=== PATIENT | male | born 1970 | race African-American/Black ===

== ENCOUNTER 2021-11-28 13:49 | Outpatient (CLI) | payer BC, SELFPAY ==
[2021-11-28 21:27] LABS: Basophils Percent Auto 0.7 % (0.0-3.0); Eosinophils Percent Auto 1.7 % (0.0-7.0); Hematocrit 40.4 % (37.0-53.0); Hemoglobin* 12.8 gm/dL (13.5-17.5); Immature Granulocytes Abs Auto 0.03 K/uL (0.00-0.30); Lymphocytes Percent Auto 29.4 % (20-44); Mean Corpuscular HGB Conc 32 gm/dL (32-36); Mean Corpuscular Hemoglobin 28 pg (26-34); Mean Corpuscular Volume 88 fL (80-100); Monocytes Percent Auto 12.7 % (0.0-11.0); Neutrophils Percent Auto 54.8 % (42.0-72.0); Platelet Count* 290 K/uL (140-440); Red Blood Count 4.61 m/uL (4.30-5.90); White Blood Count* 4.18 K/uL (4.50-11.00)
[2021-11-28 21:33] LABS: Slide Review Reflex No
[2021-11-28 21:58] LABS: Albumin* 4.1 g/dL (3.3-5.0); Chloride* 97 mmol/L (96-114)
[2021-11-28 21:59] LABS: Potassium* 4.3 mmol/L (3.6-5.1); Sodium* 134 mmol/L (135-149)
[2021-11-28 22:01] LABS: Alanine Aminotransferase* 35 U/L (4-50); Alkaline Phosphatase* 55 U/L (40-150); Aspartate Amino Transferase* 26 U/L (12-35); Bilirubin Total* 0.2 mg/dL (0.1-1.5); Blood Urea Nitrogen* 14 mg/dL (5-24); Calcium* 9.8 mg/dL (8.4-10.6); Carbon Dioxide* 29 mmol/L (20-32); Cholesterol* 155 mg/dL (90-199); Creatinine* 0.8 mg/dL (0.5-1.5); Estimated Glomerular Filt Rate 108 ml/min; Glucose* 312 mg/dL (60-115); Total Protein* 7.3 g/dL (6.0-8.3); Triglycerides* 174 mg/dL (40-149)
[2021-11-28 22:02] LABS: HDL Cholesterol* 51 mg/dL (>=40); LDL Cholesterol Calculated 69 mg/dL (<100)
== END 2021-11-28 13:50 | disposition home or self-care (01) ==
PROVIDERS: PCP Nurse Practitioner Family; Visit Provider Nurse Practitioner Family
DX: Z00.00 Encounter for general adult medical examination without abnormal findings (principal); R53.83 Other fatigue; E11.9 Type 2 diabetes mellitus without complications; F41.9 Anxiety disorder, unspecified
CPT/HCPCS: 36415; 80053; 80061; 83036; 84443; 85025